=== PATIENT | female | born 2000 | race Caucasian/White ===

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

== ENCOUNTER 2021-09-30 16:15 | Emergency (ER) | payer OTHER ==
[2021-09-30 16:40] VITALS: BP 138/73; PULSE 112; RESP 20; TEMP 98
[2021-09-30] MEDS ORDERED: DIPH,PERTUS(ACELL)TETVAC-LF 0.5 ML VIAL IM ONE (16:52)
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
[2021-09-30] MEDS ORDERED: HYDROmorphone 0.5 MG/0.5 ML SYRINGE IVP STA ×2 (18:23→20:12)
--- NOTE | 2021-09-30 19:13 | XR ---
EXAMINATION TYPE: XR wrist complete BILATERAL DATE OF EXAM: 09/30/2021 COMPARISON: NONE HISTORY: Pain TECHNIQUE: 8 views FINDINGS: I see no definite fracture nor dislocation of the right wrist. Right wrist joint spaces are normal. There is acute impacted transverse fracture of the distal left radial metaphysis. There is no disloca tion. Impaction is minimal. Carpal bones appear intact at the left wrist. Metacarpals appear intact and both wrists. IMPRESSION: No fracture seen of the right wrist. Acute slightly impacted transverse fracture distal left radius.
--- NOTE | 2021-09-30 19:16 | XR ---
EXAMINATION TYPE: XR hand complete bilateral DATE OF EXAM: 09/30/2021 COMPARISON: NONE HISTORY: Pain TECHNIQUE: 3 views each hand FINDINGS: There is in the right hand and impacted comminuted fracture of the neck of the second metac arpal head. There is no dislocation. The remainder of the right hand appears intact The left hand shows intact metacarpals. The fingers are intact left carpal bones appear intact. There is acute transverse fracture distal left radial metaphysis. IMPRESSION: Right second metacarpal Head fracture with impaction and comminution. There is possible hairline fracture of the ulnar styloi d process of the right wrist. Left transverse fracture distal radial metaphysis.
--- NOTE | 2021-09-30 19:35 | XR ---
EXAMINATION TYPE: XR chest 2V DATE OF EXAM: 09/30/2021 COMPARISON: NONE HISTORY: Pain TECHNIQUE: 2 views FINDINGS: Heart and mediastinum are normal. Lungs are clear. Diaphragm is normal. There is right axil jeff pacemaker. Bony thorax is intact. IMPRESSION: Normal chest.
[2021-09-30] MEDS ORDERED: ACET/COD 300 MG/30 MG STARTER PACK 6 TAB BTL PO STA (19:45)
[2021-09-30] MEDS ORDERED: BACITRACIN ZINC 500 UNIT/GM OINT 28.4 GM TUBE TOPICAL ONE (20:11)
== END 2021-09-30 21:00 | disposition home or self-care (01) ==
LOC: EC 16:15
DX: S52.592A Other fractures of lower end of left radius, initial encounter for closed fracture (principal); S52.611A Displaced fracture of right ulna styloid process, initial encounter for closed fracture; Z23 Encounter for immunization; Z88.7 Allergy status to serum and vaccine; V89.2XXA Person injured in unspecified motor-vehicle accident, traffic, initial encounter
CPT/HCPCS: 93005; 73110; 73130; 71046; 72125; 70450; 90715; 29125; 90471; 96374; 96376; 99284; J1170

== ENCOUNTER → 2021-10-03 | Outpatient (CLI) | payer OTHER ==
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
== END | disposition home or self-care (01) ==
LOC: RADCTMAIN 16:34
PROVIDERS: ATTEND Orthopaedic Surgery Hand Surgery
DX: S52.572A Other intraarticular fracture of lower end of left radius, initial encounter for closed fracture (principal); S62.390A Other fracture of second metacarpal bone, right hand, initial encounter for closed fracture

== ENCOUNTER → 2021-10-09 | Day surgery (SDC) | payer OTHER ==
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
[2021-10-07 16:18] VITALS: BMI 19.5
[~2021-10-09] MED LIST: BUPIVACAINE (PF) 0.5% 30 ML VIAL MISCELLANE ONE; DEXAMETHASONE SOD PHOSPHATE 4 MG/ML 1 ML VIAL IV ONE; HYDROcodone/APAP 5-325MG 1 EACH TAB ONE; HYDROcodone/APAP 5-325MG 1 EACH TAB PO ONE; HYDROmorphone 0.5 MG/0.5 ML SYRINGE IVP PRN; LACTATED RINGERS 1,000 ML IV ONE; LACTATED RINGERS 1,000 ML IV SCH; LIDOCAINE 1% (10MG/ML) FOR IV START INTRADERMA PRN; LIDOCAINE 2% INJ 20 MG/ML (2 ML VIAL) ONE; MIDAZOLAM 2 MG/2 ML VIAL IV PRN; MIDAZOLAM 2 MG/2 ML VIAL ONE; ONDANSETRON 4 MG/2 ML VIAL IVP ONE; PHENYLEPHRINE-0.9% NACL SYG 1,000 MCG/10 ML SYRINGE ONE; PROPOFOL 10 MG/ML 20 ML VIAL IV ONE; SUCCINYLCHOLINE CHLORIDE 100 MG/5 ML SYR IV ONE; fentaNYL (PF) 50 MCG/ML 2 ML AMP ONE
[2021-10-09 14:54] LABS: Basophils # (A) 0.1 k/uL (0-0.2); Basophils % (A) 1 %; Eosinophils # (A) 0.1 k/uL (0-0.7); Eosinophils % (A) 1 %; HCT 43.6 % (34.0-46.0); HGB 15.1 gm/dL (11.4-16.0); Lymphocytes # (A) 2.1 k/uL (1.0-4.8); Lymphocytes % (A) 29 %; MCH 31.1 pg (25.0-35.0); MCHC 34.6 g/dL (31.0-37.0); MCV 89.9 fL (80.0-100.0); Mean Platelet Volume 7.7; Monocytes # (A) 0.3 k/uL (0-1.0); Monocytes % (A) 4 %; Neutrophils # (A) 4.6 k/uL (1.3-7.7); Neutrophils % (A) 63 %; Platelet Count 199 k/uL (150-450); RBC 4.85 m/uL (3.80-5.40); RDW 13.3 % (11.5-15.5); WBC 7.3 k/uL (3.8-10.6)
[2021-10-09 19:36] VITALS: RESP 16; TEMP 97.4
[2021-10-09 20:42] VITALS: BP 126/65; PULSE 98
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
== END | disposition home or self-care (01) ==
LOC: OR 13:59
PROVIDERS: ATTEND Orthopaedic Surgery Hand Surgery
DX: S52.572A Other intraarticular fracture of lower end of left radius, initial encounter for closed fracture (principal); S62.330A Displaced fracture of neck of second metacarpal bone, right hand, initial encounter for closed fracture; V49.9XXA Car occupant (driver) (passenger) injured in unspecified traffic accident, initial encounter; F41.9 Anxiety disorder, unspecified; Z95.810 Presence of automatic (implantable) cardiac defibrillator; Z86.74 Personal history of sudden cardiac arrest; Z79.899 Other long term (current) drug therapy; Z88.8 Allergy status to other drugs, medicaments and biological substances
CPT/HCPCS: 25609; 26615; 81025; 80051; 85025; C1713 ×2; J2250; J1100; J0690; J2405; J3010; J2370; J0330; J2704; J1170; J2001

== ENCOUNTER 2021-11-06 13:47 | Day surgery (SDC) | payer OTHER ==
[2021-11-06 14:18] VITALS: TEMP 99.4
[2021-11-06] MEDS ORDERED: ONDANSETRON 4 MG/2 ML VIAL ONE (14:21)
[2021-11-06] MEDS ORDERED: LIDOCAINE 1% (10MG/ML) FOR IV START INTRADERMA ONE (14:34)
[2021-11-06] MEDS ORDERED: LACTATED RINGERS 1,000 ML IV ONE (14:35)
[2021-11-06] MEDS ORDERED: ONDANSETRON 4 MG/2 ML VIAL IVP ONE (14:35)
[2021-11-06] MEDS ORDERED: DEXAMETHASONE SOD PHOSPHATE 4 MG/ML 1 ML VIAL IV ONE (14:36)
[2021-11-06] MEDS ORDERED: PROPOFOL 10 MG/ML 20 ML VIAL IV ONE (15:30)
[2021-11-06] MEDS ORDERED: fentaNYL (PF) 50 MCG/ML 2 ML AMP ONE (15:30)
[2021-11-06] MEDS ORDERED: MIDAZOLAM 2 MG/2 ML VIAL ONE (15:30)
[2021-11-06] MEDS ORDERED: BUPIVACAINE (PF) 0.5% 30 ML VIAL SQ ONE (15:48)
[2021-11-06] MEDS ORDERED: LIDOCAINE 1% INJ 10MG/ML (30 ML VIAL-PF) SQ ONE (15:48)
[2021-11-06 16:40] VITALS: BP 131/76; PULSE 84; RESP 18
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
== END 2021-11-06 16:58 | disposition home or self-care (01) ==
LOC: OR 13:47
PROVIDERS: ATTEND Orthopaedic Surgery Hand Surgery
DX: S62.330A Displaced fracture of neck of second metacarpal bone, right hand, initial encounter for closed fracture (principal); M24.541 Contracture, right hand; Z95.810 Presence of automatic (implantable) cardiac defibrillator; Z88.3 Allergy status to other anti-infective agents; Z79.899 Other long term (current) drug therapy; X58.XXXA Exposure to other specified factors, initial encounter
CPT/HCPCS: 81025; 20680; 26340; J2250; J1100; J2405; J2001; J3010; J2704

== ENCOUNTER 2022-09-24 12:39 | Day surgery (SDC) | payer OTHER ==
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
[~2022-09-24 12:39] MED LIST changes: -BUPIVACAINE (PF) 0.5% 30 ML VIAL MISCELLANE ONE; -HYDROcodone/APAP 5-325MG 1 EACH TAB ONE; -HYDROcodone/APAP 5-325MG 1 EACH TAB PO ONE; -LACTATED RINGERS 1,000 ML IV ONE; -LIDOCAINE 1% (10MG/ML) FOR IV START INTRADERMA PRN; -LIDOCAINE 2% INJ 20 MG/ML (2 ML VIAL) ONE; -MIDAZOLAM 2 MG/2 ML VIAL IV PRN; -MIDAZOLAM 2 MG/2 ML VIAL ONE; -PHENYLEPHRINE-0.9% NACL SYG 1,000 MCG/10 ML SYRINGE ONE; -PROPOFOL 10 MG/ML 20 ML VIAL IV ONE; -SUCCINYLCHOLINE CHLORIDE 100 MG/5 ML SYR IV ONE; -fentaNYL (PF) 50 MCG/ML 2 ML AMP ONE
[2022-09-24] MEDS ORDERED: LIDOCAINE 1% (10MG/ML) FOR IV START INTRADERMA ONE (14:30)
[2022-09-24] MEDS ORDERED: SCOPOLAMINE 1 MG/72 HR PATCH TRANSDERM ONE (14:35)
[2022-09-24] MEDS ORDERED: diphenhydrAMINE 50 MG/ML 1 ML VIAL ONE (14:37)
[2022-09-24] MEDS ORDERED: diphenhydrAMINE 50 MG/ML 1 ML VIAL IVP ONE (14:40)
[2022-09-24] MEDS ORDERED: MIDAZOLAM 2 MG/2 ML VIAL ONE (14:56)
[2022-09-24] MEDS ORDERED: PROPOFOL 10 MG/ML 20 ML VIAL IV ONE (14:56)
[2022-09-24] MEDS ORDERED: LIDOCAINE 2% INJ 20 MG/ML (2 ML VIAL) ONE (14:56)
[2022-09-24] MEDS ORDERED: ePHEDrine 50 MG/ML 1 ML VIAL ONE (14:56)
[2022-09-24] MEDS ORDERED: fentaNYL (PF) 50 MCG/ML 2 ML AMP ONE (14:56)
[2022-09-24] MEDS ORDERED: LIDOCAINE 2% INJ 20 MG/ML SQ ONE (15:15)
[2022-09-24] MEDS ORDERED: BUPIVACAINE (PF) 0.5% 30 ML VIAL SQ ONE (15:15)
[2022-09-24] MEDS ORDERED: LACTATED RINGERS 1,000 ML IV ONE (15:39)
--- NOTE | 2022-09-24 15:48 | P.OP ---
Date of Procedure: 09/24/22 Preoperative Diagnosis: 1.) Left wrist irritable orthopedic implant Postoperative Diagnosis: 1.) Left wrist irritable orthopedic implant Procedure(s) Performed: 1.) Left wrist removal of deep orthopedic implant 2.) Left wrist extensor tenolysis Anesthesia: SALOMON Surgeon: Brandon Sloan Estimated Blood Loss (ml): 0 Pathology: none sent Condition: stable Disposition: PACU Description of Procedure: This is a 21 year old female who presents today for a left wrist removal of deep hardware after undergoing dorsal distal radius plating for a comminuted, distally located, intra-articular distal radius fracture in the past. Risks and benefits of surgery were discussed with the patient including bleeding, damage to surrounding tissue, infection, need for further surgery as well as risks of anesthesia including pulmonary embolism and even and the patient wished to proceed with surgical intervention. The patient was seen in the pre-operative area by myself. Consent and H&P were completed and updated. The correct extremity was marked in the pre-operative area by myself and all other questions were answered. The patient was brought to the operating room by the department of anesthesia. They remained on the portable stretcher and a rolling hand table was brought to the side of the operative extremity. Pre-operative time out was performed indicating the correct patient, procedure and laterality. All in the room agreed. Pre-operative antibiotics were given prior to skin incision. The patient was then drifted off to sleep by the department of anesthesia. A nonsterile tourniquet was then applied to the operative extremity and the left upper extremity was then prepped and draped in normal sterile fashion. The operative extremity was the exsanguinated with an esmarch bandage and the tourniquet was inflated to 250mmHg. Longitudinal incision was made centered over the site of previous incision on the dorsal aspect of the wrist was made with 15 blade scalpel. Blunt dissection was taken down to periosteum. The 4th dorsal compartment was then subperiostally elevated from radial to ulnar to reveal the dorsal plate. All screws were removed from the shaft and distal portion of the plate. A periosteal elevator was used to free the plate from surrounding bone to loosen the plate which was then removed. The wound was then irrigated. Extensor tenolysis was then performed freeing surrounding scar tissue from the third and fourth dorsal compartment tendons which were all found to be intact. Fluoroscopy was then utilized to confirm removal of the plate and screws. Wrist was flexed and extended under fluoroscopy and distal radius fracture was moving as a single unit and 80 degrees of flexion/90 extension was appreciated. There was solid union of the fracture site appreciated with evangelical of volar tilt, radial height and inclination. Wounds were irrigated and subcutaneous closure was performed with 4-0 monocryl followed by skin closure with running 4-0 monocryl suture. Sterile dressing consisting of steri strips, mastisol, 4x4s, and cast padding was applied. Tourniquet was let down and the hand had immediate perfusion. The patient was then woken by the department of anesthesia and transferred to PACU in stable condition. Brandon Sloan DO Orthopedic Hand/Upper Extremity Surgeon
[2022-09-24 15:52] VITALS: TEMP 97.6
[2022-09-24] MEDS ORDERED: KETOROLAC 15 MG/ML 1 ML VIAL ONE (16:32)
[2022-09-24] MEDS ORDERED: KETOROLAC 15 MG/ML 1 ML VIAL IVP ONE (16:37)
[2022-09-24 16:52] VITALS: RESP 16
[2022-09-24 17:03] VITALS: BP 111/62; PULSE 67
== END 2022-09-24 17:13 | disposition home or self-care (01) ==
LOC: OR 12:39
PROVIDERS: ATTEND Orthopaedic Surgery Hand Surgery
DX: T84.84XA Pain due to internal orthopedic prosthetic devices, implants and grafts, initial encounter (principal); Y82.8 Other medical devices associated with adverse incidents; I49.9 Cardiac arrhythmia, unspecified; F41.9 Anxiety disorder, unspecified; Z79.1 Long term (current) use of non-steroidal anti-inflammatories (NSAID); F10.20 Alcohol dependence, uncomplicated; Z86.74 Personal history of sudden cardiac arrest; Z86.16 Personal history of COVID-19; Z95.810 Presence of automatic (implantable) cardiac defibrillator; Z79.899 Other long term (current) drug therapy; Z88.8 Allergy status to other drugs, medicaments and biological substances
CPT/HCPCS: 81025; 20680; 25295; J2001 ×2; J2250; J1200; J1100; J2405; J0690; J3010; J1885; J2704

== ENCOUNTER 2022-12-03 11:26 | Day surgery (SDC) | payer OTHER ==
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
[~2022-12-03 11:26] MED LIST changes: +LIDOCAINE 1% (10MG/ML) FOR IV START INTRADERMA PRN; +SCOPOLAMINE 1 MG/72 HR PATCH TRANSDERM ONE; +droPERidol 5 MG/2 ML VIAL IVP ONE
[2022-12-03] MEDS ORDERED: LACTATED RINGERS 1,000 ML IV ONE (11:55)
[2022-12-03] MEDS ORDERED: KETOROLAC 15 MG/ML 1 ML VIAL ONE (12:28)
[2022-12-03] MEDS ORDERED: MIDAZOLAM 2 MG/2 ML VIAL ONE (12:28)
[2022-12-03] MEDS ORDERED: PROPOFOL 10 MG/ML 20 ML VIAL IV ONE (12:28)
[2022-12-03] MEDS ORDERED: LIDOCAINE 2% INJ 20 MG/ML (2 ML VIAL) ONE (12:28)
[2022-12-03] MEDS ORDERED: fentaNYL (PF) 50 MCG/ML 2 ML AMP ONE (12:28)
[2022-12-03] MEDS ORDERED: BUPIVACAINE (PF) 0.5% 30 ML VIAL SQ ONE ×2 (12:50→13:09)
[2022-12-03] MEDS ORDERED: LIDOCAINE 2% INJ 20 MG/ML SQ ONE ×2 (12:50→13:09)
[2022-12-03 13:32] VITALS: TEMP 96.8
[2022-12-03 14:14] VITALS: BP 113/69; PULSE 65; RESP 16
--- NOTE | 2022-12-03 16:41 | P.OP ---
Date of Procedure: 12/03/22 Preoperative Diagnosis: 1.) Right index finger MCP extension contracture Postoperative Diagnosis: 1.) Right index finger MCP extension contracture Procedure(s) Performed: 1.) Right index finger extensor tenolysis 2.) Right index finger MCP joint arthrotomy with dorsal capsulectomy Anesthesia: SALOMON Surgeon: Brandon Sloan Estimated Blood Loss (ml): 0 Pathology: none sent Condition: stable Disposition: PACU Description of Procedure: This is a 22 year old female who presents today for surgical intervention for her right index finger MCP joint extension contracture. Risks and benefits of surgery were discussed with the patient including bleeding, damage to surrounding tissue, infection, need for further surgery as well as risks of anesthesia including pulmonary embolism and even and the patient wished to proceed with surgical intervention. The patient was seen in the pre-operative area by myself. Consent and H&P were completed and updated. The correct extremity was marked in the pre-operative area by myself and all other questions were answered. Operative Narrative: The patient was brought to the operating room by the department of anesthesia. They remained on the portable stretcher and a rolling hand table was brought to the side of the operative extremity. Pre-operative time out was performed indicating the correct patient, procedure and laterality. All in the room agreed. Pre-operative antibiotics were given prior to skin incision. The patient was then drifted off to sleep by the department of anesthesia. A nonsterile tourniquet was then applied to the operative extremity and the right upper extremity was then prepped and draped in normal sterile fashion. The operative extremity was the exsanguinated with an esmarch bandage and the tourniquet was inflated to 250mmHg. Previous incision was utilized located centrally over the dorsal aspect of the MCP joint of the right index finger. Blunt dissection was taken down through subcutaneous tissues and excessive scar tissue surrounding the extensor tendon was excised and the tendon proximally was now mobile. The saggital band was then incised on the ulnar aspect of the joint and adhesions were from the extensor tendon and the MCP joint capsule. A dorsal capsulectomy and arthrotomy was performed with 15 blade scalpel and freer elevator was then used to break up adhesions down the proximal phalanx. With these measures the MCP joint was able to be flexed to 80 degrees. Release of the ulnar collateral ligament of the MCP joint off of the metacarpal head was then performed with 15 blade scalpel and the MCP joint was then able to now flex to 95 degrees compared to the 45 degrees pre-operatively. The wound was then irrigated and bovie was used for hemostasis. Closure was performed with 4-0 monocryl suture followed by 4-0 nylon suture. Sterile dressing with adaptic, 4x4s, cast padding and edilson wrap was applied. Tourniquet was let down and the hand had immediate perfusion. The patient was then woken by the department of anesthesia and transferred to PACU in stable condition. Brandon Sloan D.O. Orthopedic Hand/Upper Extremity Surgeon
== END 2022-12-03 14:38 | disposition home or self-care (01) ==
LOC: OR 11:26
PROVIDERS: ATTEND Orthopaedic Surgery Hand Surgery
DX: M24.541 Contracture, right hand (principal); Z86.74 Personal history of sudden cardiac arrest; Z95.810 Presence of automatic (implantable) cardiac defibrillator; Z79.899 Other long term (current) drug therapy
CPT/HCPCS: 81025; 26445; 26520; J2001 ×2; J2250; J1100; J2405; J0690; J3010; J1885; J2704; J0665

== ENCOUNTER 2023-02-27 11:33 | Emergency (ER) | payer OTHER ==
[2023-02-27 12:13] LABS: Basophils % (A) 1 %; Eosinophils # (A) 0.1 k/uL (0-0.7); Eosinophils % (A) 1 %; HCT 42.4 % (34.0-46.0); HGB 14.6 gm/dL (11.4-16.0); Lymphocytes # (A) 1.5 k/uL (1.0-4.8); Lymphocytes % (A) 26 %; MCH 31.8 pg (25.0-35.0); MCHC 34.5 g/dL (31.0-37.0); MCV 92.2 fL (80.0-100.0); Mean Platelet Volume 8.8; Monocytes # (A) 0.3 k/uL (0-1.0); Monocytes % (A) 4 %; Neutrophils # (A) 3.8 k/uL (1.3-7.7); Neutrophils % (A) 66 %; Platelet Count 155 k/uL (150-450); RDW 12.9 % (11.5-15.5); WBC 5.8 k/uL (3.8-10.6)
[2023-02-27 12:24] LABS: Partial Thromboplastin Time 25.5 sec (22.0-30.0); Prothrombin Time 11.2 sec (10.0-12.5)
[2023-02-27 12:28] LABS: ALT 9 U/L (4-34); AST 18 U/L (14-36); African American GFR (CKD) >90 (>60 ml/min/1.73 sqM); Albumin 4.3 g/dL (3.5-5.0); Alkaline Phosphatase 55 U/L (38-126); Anion Gap 13 mmol/L; Blood Urea Nitrogen 14 mg/dL (7-17); Calcium 9.9 mg/dL (8.4-10.2); Carbon Dioxide 20 mmol/L (22-30); Chloride 109 mmol/L (98-107); Glucose 88 mg/dL (74-99); Non-African American GFR(CKD) >90 (>60 ml/min/1.73 sqM); Potassium 4.1 mmol/L (3.5-5.1); Sodium 142 mmol/L (137-145); Total Bilirubin 0.7 mg/dL (0.2-1.3); Total Protein 7.2 g/dL (6.3-8.2)
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
--- NOTE | 2023-02-27 13:48 | XR ---
EXAMINATION TYPE: XR chest 2V DATE OF EXAM: 02/27/2023 COMPARISON: NONE HISTORY: Chest pain. TECHNIQUE: Frontal and lateral views of the chest are obtained. FINDINGS: There is no focal air space opacity, pleural effusion, or pneumothorax seen. The cardiac silhouette size is within normal limits. The osseous structures are intact. There is a right-sided AICD generator with leads overlying the right atrium and right ventricle. IMPRESSION: No acute cardiopulmonary process.
[2023-02-27] MEDS ORDERED: SODIUM CHLORIDE 0.9% 500 ML 500 ML IV STA (13:49)
[2023-02-27 15:44] VITALS: BP 115/58; PULSE 62; RESP 16; TEMP 98.9
== END 2023-02-27 19:00 | disposition home or self-care (01) ==
LOC: EC 11:33
DX: R07.89 Other chest pain (principal); I45.19 Other right bundle-branch block; F41.9 Anxiety disorder, unspecified; Z88.8 Allergy status to other drugs, medicaments and biological substances; Z86.16 Personal history of COVID-19; Z79.899 Other long term (current) drug therapy
CPT/HCPCS: 36415; 71046; 80053; 83735; 84484; 85025; 85610; 85730; 93005; 99285

== ENCOUNTER 2023-03-15 12:23 | Emergency (ER) | payer OTHER ==
[2023-03-15 12:34] VITALS: TEMP 98.9
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
[2023-03-15 13:29] LABS: Basophils % (A) 0 %; Eosinophils # (A) 0.1 k/uL (0-0.7); Eosinophils % (A) 2 %; HCT 45.2 % (34.0-46.0); HGB 15.5 gm/dL (11.4-16.0); Lymphocytes # (A) 1.4 k/uL (1.0-4.8); Lymphocytes % (A) 23 %; MCH 31.4 pg (25.0-35.0); MCHC 34.3 g/dL (31.0-37.0); MCV 91.7 fL (80.0-100.0); Mean Platelet Volume 8.7; Monocytes # (A) 0.3 k/uL (0-1.0); Monocytes % (A) 4 %; Neutrophils # (A) 4.3 k/uL (1.3-7.7); Neutrophils % (A) 69 %; Platelet Count 170 k/uL (150-450); RBC 4.93 m/uL (3.80-5.40); RDW 12.6 % (11.5-15.5); WBC 6.2 k/uL (3.8-10.6)
[2023-03-15 13:44] LABS: Partial Thromboplastin Time 25.5 sec (22.0-30.0); Prothrombin Time 10.7 sec (10.0-12.5)
[2023-03-15] MEDS ORDERED: LORazepam 2 MG/ML INJ IV STA (13:54)
[2023-03-15 14:08] LABS: ALT 11 U/L (4-34); AST 34 U/L (14-36); African American GFR (CKD) >90 (>60 ml/min/1.73 sqM); Albumin 4.8 g/dL (3.5-5.0); Alkaline Phosphatase 51 U/L (38-126); Anion Gap 13 mmol/L; Blood Urea Nitrogen 12 mg/dL (7-17); Calcium 9.6 mg/dL (8.4-10.2); Carbon Dioxide 20 mmol/L (22-30); Chloride 107 mmol/L (98-107); Glucose 97 mg/dL (74-99); Magnesium 2.1 mg/dL (1.6-2.3); Non-African American GFR(CKD) >90 (>60 ml/min/1.73 sqM); Sodium 140 mmol/L (137-145); Total Bilirubin 1.1 mg/dL (0.2-1.3); Total Protein 8.5 g/dL (6.3-8.2)
[2023-03-15 14:09] VITALS: RESP 16
[2023-03-15 14:41] LABS: Potassium 4.5 mmol/L (3.5-5.1)
--- NOTE | 2023-03-15 14:48 | XR ---
EXAMINATION TYPE: XR chest 2V DATE OF EXAM: 03/15/2023 1:35 PM CLINICAL INDICATION:Female, 22 years old with history of Chest Pain; [facility] COMPARISON: 02/27/2023 TECHNIQUE: XR chest 2V Frontal and lateral views of the chest. FINDINGS: Lines/Tubes: EKG leads overlie the chest. No indwelling lines are seen. Lungs/Pleura: There is no evidence of pleural effusion, focal consolidation, or pneumothorax. Lungs again mildly hyperinflated. Pulmonary vascularity: Unremarkable. Heart/mediastinum: Cardiomediastinal silhouette is unremarkable. Two lead cardiac conduction device o verlying the right hemithorax with lead tips projecting over the right ventricle and right atrium, st able. Musculoskeletal: No acute osseous pathology. Other findings: None IMPRESSION: No acute cardiopulmonary disease/process. No change.
[2023-03-15 15:38] VITALS: BP 117/74; PULSE 93
== END 2023-03-15 15:23 | disposition other institution (70) ==
LOC: EC 12:23
DX: I47.20 Ventricular tachycardia, unspecified (principal); Z86.16 Personal history of COVID-19
CPT/HCPCS: 99291 ×2; 96374 ×2; 36415; 93005; 80053; 83735; 84484; 85025; 85610; 85730; 71046; J2060

== ENCOUNTER 2024-02-19 17:25 | Emergency (ER) | payer OTHER ==
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
--- NOTE | 2024-02-19 19:33 | XR ---
EXAMINATION TYPE: XR chest 2V DATE OF EXAM: 02/19/2024 COMPARISON: 03/15/2023 INDICATION: Chest pain TECHNIQUE: Frontal and lateral views of the chest are obtained. FINDINGS: The heart size is normal. The pulmonary vasculature is normal. The lungs are clear. Electronic device overlies the right chest. IMPRESSION: 1. No acute pulmonary process. [facility], Workstation: [facility], 02/19/2024 7:30 PM
[2024-02-19 19:39] LABS: Basophils % (A) 1 %; Eosinophils # (A) 0.1 k/uL (0-0.7); Eosinophils % (A) 1 %; HCT 42.9 % (34.0-46.0); HGB 14.2 gm/dL (11.4-16.0); Lymphocytes # (A) 1.8 k/uL (1.0-4.8); Lymphocytes % (A) 34 %; MCH 31.3 pg (25.0-35.0); Mean Platelet Volume 8.1; Monocytes # (A) 0.3 k/uL (0-1.0); Monocytes % (A) 5 %; Neutrophils # (A) 3.1 k/uL (1.3-7.7); Neutrophils % (A) 57 %; Platelet Count 189 k/uL (150-450); RBC 4.52 m/uL (3.80-5.40); RDW 12.8 % (11.5-15.5); WBC 5.4 k/uL (3.8-10.6)
[2024-02-19 19:49] LABS: Partial Thromboplastin Time 25.2 sec (22.0-30.0)
[2024-02-19 20:07] LABS: ALT 6 U/L (4-34); AST 19 U/L (14-36); African American GFR (CKD) >90 (>60 ml/min/1.73 sqM); Albumin 4.7 g/dL (3.5-5.0); Alkaline Phosphatase 50 U/L (38-126); Anion Gap 9 mmol/L; Blood Urea Nitrogen 8 mg/dL (7-17); Calcium 9.6 mg/dL (8.4-10.2); Carbon Dioxide 26 mmol/L (22-30); Chloride 107 mmol/L (98-107); Glucose 74 mg/dL (74-99); Magnesium 2.1 mg/dL (1.6-2.3); Non-African American GFR(CKD) >90 (>60 ml/min/1.73 sqM); Potassium 3.8 mmol/L (3.5-5.1); Sodium 142 mmol/L (137-145); Total Bilirubin 0.7 mg/dL (0.2-1.3); Total Protein 7.7 g/dL (6.3-8.2)
[2024-02-19 23:58] VITALS: BP 111/70; PULSE 61; RESP 18
== END 2024-02-19 23:57 | disposition home or self-care (01) ==
LOC: EC 17:25
DX: R07.89 Other chest pain (principal); R00.2 Palpitations; Z88.8 Allergy status to other drugs, medicaments and biological substances
CPT/HCPCS: 36415; 71046; 80053; 83735; 84484; 85025; 85610; 85730; 93005; 99285